=== PATIENT | female | born 1955 | race Caucasian/White ===

== ENCOUNTER 2017-02-11 14:55 | Outpatient (CLI) | payer BC ==
--- NOTE | 2017-02-11 20:27 | MRI ---
LEFT SHOULDER MRI WITHOUT IV CONTRAST: 02/11/17 HISTORY: 61-year-old female with acute pain left shoulder. Multiplanar and multisequence MRI examination of the left shoulder is performed. Minimal AC joint hy pertrophic changes are noted. Minimal downsloping of the anterior acromion and prominent downsloping of the lateral acromion with some minimal fluid and moderate fat stranding in the subacromial and s ubdeltoid bursa. Probable small low grade partial thickness undersurface tear of the supraspinatus t endon at the insertion. Infraspinatus and subscapularis tendons and biceps tendon are unremarkable. There is a SLAP tear extending anteriorly and posteriorly with two very small paralabral cysts noted at the anterior superior labrum. Rotator cuff muscles are within normal limits of signal and volume . IMPRESSION: SLAP tear with anterior and posterior extension. Probable small low grade partial thickness undersur face tear of the supraspinatus tendon. AC joint arthrosis with some fat stranding and very minimal f luid in the subacrominal subdeltoid bursa. POS: [facility]
== END 2017-02-11 14:56 | disposition home or self-care (01) ==
LOC: MRI 14:55
PROVIDERS: ATTEND Family Medicine
DX: M25.512 Pain in left shoulder (principal)